=== PATIENT | female | born 1990 | race Two or more races ===

== ENCOUNTER 2016-11-07 10:07 | Emergency (ER) | payer OTHER ==
[~2016-11-07] VITALS: Ht 162.6 cm; Wt 54.6 kg
[2016-11-07] MEDS ORDERED: IV NORMAL SALINE 1,000ML 1,000 ML IV SCH (10:12)
[2016-11-07 10:46] LABS: HEMATOCRIT 40.8 % (36.0-47.0); HEMOGLOBIN 13.7 g/dL (12.0-15.5); MEAN CORPUSCULAR HEMOGLOBIN 30 pg (25-35); MEAN CORPUSCULAR HGB CONC 34 g/dL (31-37); MEAN CORPUSCULAR VOLUME 89 fL (79-100); PLATELET COUNT 219 x10^3/uL (140-400); RED CELL DISTRIBUTION WIDTH 12.6 % (11.5-14.5)
--- NOTE | 2016-11-07 10:58 | RAD ---
Portable chest, 11/07/2016: History: Syncope The heart size and pulmonary vascularity are normal. The lungs are clear. There is no evidence of pleural fluid. IMPRESSION: No acute cardiopulmonary abnormality is detected.
[2016-11-07 11:01] LABS: ALBUMIN 4.4 g/dL (3.4-5.0); CALCIUM 8.8 mg/dL (8.5-10.1); CREATININE 0.9 mg/dL (0.6-1.0); DIRECT BILIRUBIN 0.2 mg/dL (0.0-0.2); GFR 74.6; MAGNESIUM 2.4 mg/dL (1.8-2.4); POTASSIUM 3.9 mmol/L (3.5-5.1); TOTAL BILIRUBIN 0.6 mg/dL (0.2-1.0); TOTAL PROTEIN 7.9 g/dL (6.4-8.2)
--- NOTE | 2016-11-07 11:03 | RAD ---
CT of the head without contrast, 11/07/2016: History: Syncope, fall The ventricles are within normal limits in size. There is no shift of the midline structures. There is no evidence of acute intracranial hemorrhage or mass effect. IMPRESSION: No acute intracranial abnormality is detected. CT of the cervical spine without contrast, 11/07/2016: Noncontrast scans were obtained with multiplanar reconstructions produced. No fracture or dislocation is identified. The central spinal canal is well-preserved. The visualized paraspinal soft tissues are unremarkable. IMPRESSION: No acute cervical spine abnormality is detected. PQRS Compliance Statement: One or more of the following individualized dose reduction techniques were utilized for this examination: 1. Automated exposure control 2. Adjustment of the mA and/or kV according to patient size 3. Use of iterative reconstruction technique
[2016-11-07 11:13] LABS: PREG TEST PT QUAL NEGATIVE (NEG)
--- NOTE | 2016-11-07 11:14 | PHYS DOC ---
General Chief Complaint: ALTERED MENTAL STATUS Stated Complaint: ALTERED MENTAL STATUS Time Seen by MD: 10:11 Source: patient, family, EMS Exam Limitations: clinical condition Problems: History of Present Illness Initial Comments Patient is a 26-year-old female brought to the ED by EMS for mental status change. EMS reports they were called because patient was found down and unresponsive. On arrival they say patient was lying supine her eyes were closed but she would shake her head in response to verbal stimuli. Vitals were stable FSBS 81 so she was brought to the ED for further evaluation. Upon ED arrival patient was attempting to mumble answers. After patient was in the department 30-45 minutes she became verbal and states that on she was diagnosed with labyrinthitis at [facility] after presenting with congestion dizziness and headache. Shortly after that she began taking Sudafed daily and stop that only a few days ago. She has an appointment with ear nose and throat scheduled for November 19. 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 She says that she had 2 episodes of vomiting last night but woke up feeling well this morning. While working she remembers taking a yelitza aspirin, the next thing she recalls is "waking up lying on my back in my office." She says for quite some time she was unable to move or speak, but she does remember that she has an air freshener that sprays every 30 minutes. She says during this time it had sprayed 3 times. Eventually she was able to get some words out and verbally commanded her phone via [employer] to call 911. Patient's voice was too weak to be understood by the train dispatcher, she did call her significant other and was able to communicate enough that people came looking for her. Patient was not postictal at the point she was found, she had not lost continence of her bowels or bladder and had no evidence of trauma. Vital signs in the department, patient afebrile heart rate 97 bpm with 23 respirations blood pressure 128/81 100% on room air. Patient denies focal weakness in the department she does complain of global headache which has been bothering her the past several weeks it is not any worse it is described as throbbing/pressure primarily behind her eyes radiating to her ears. She gets intermittent dizziness and vertigo described as unsteadiness. No fever or chest pain shortness of breath or focal neurologic deficit. No PCP Timing/Duration: 1-3 hours Severity: severe Modifying Factors: improves with other Associated Symptoms: headaches, syncope, weakness, other Allergies: Coded Allergies: No Known Drug Allergies (Unverified , 11/07/16) Past Medical History Medical History: other (ADHD, depression, benign positional vertigo) Surgical History: noncontributory ( section) Social History Smoker: non-smoker Alcohol: occasionally Drugs: marijuana Review of Systems Constitutional: denies chills, denies fever, malaise EENTM: blurred vision, nose congestion, throat pain, denies throat swelling Respiratory: denies cough, denies shortness of breath, denies wheezing Cardiovascular: see HPI, denies chest pain, denies palpitations Gastrointestinal: see HPI, denies abdominal pain, denies diarrhea Genitourinary: denies dysuria, denies frequency, denies hematuria Musculoskeletal: denies back pain, denies joint swelling, denies neck pain Psychiatric/Neurological: see HPI Hematologic/Lymphatic: denies blood clots, denies easy bleeding, denies easy bruising Physical Exam General Appearance: WD/WN, no apparent distress (unresponsive on arrival) Eyes: bilateral eye normal inspection, bilateral eye PERRL, bilateral eye EOMI Ear, Nose, Throat: hearing grossly normal, normal ENT inspection, normal pharynx Neck: non-tender, supple Respiratory: chest non-tender, normal breath sounds, no respiratory distress Cardiovascular: normal peripheral pulses, regular rate, rhythm Gastrointestinal: non tender, soft Back: no CVA tenderness, no vertebral tenderness Extremities: normal range of motion, non-tender, normal inspection, no pedal edema 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 PHYSICIAN: LUCI GONSALEZ DO REASON: syncope/fall PROCEDURE: CT HEAD AND CERVICAL SPINE WO CT of the head without contrast, 11/07/2016: History: Syncope, fall The ventricles are within normal limits in size. There is no shift of the midline structures. There is no evidence of acute intracranial hemorrhage or mass effect. IMPRESSION: No acute intracranial abnormality is detected. CT of the cervical spine without contrast, 11/07/2016: Noncontrast scans were obtained with multiplanar reconstructions produced. No fracture or dislocation is identified. The central spinal canal is well-preserved. The visualized paraspinal soft tissues are unremarkable. IMPRESSION: No acute cervical spine abnormality is detected. PQRS Compliance Statement: One or more of the following individualized dose reduction techniques were utilized for this examination: 1. Automated exposure control 2. Adjustment of the mA and/or kV according to patient size 3. Use of iterative reconstruction technique DICTATED AND SIGNED BY: GOPAL CONNOR MD DATE: 11/07/16 1056 CC: GISSEL DAVIS; LUCI GONSALEZ DO ~ Lab and urine studies were reassuring, urine drug screen positive for amphetamine patient takes medications for ADD I discussed the patient with Dr. Barahona billing collections specialist neurology. He requested that the patient be admitted and no other orders as he would like to see the patient prior to ordering studies. I discussed this with Dr. Zelaya who accepts observation telemetry admission. Departure Disposition: ADMITTED INPATIENT Diagnosis: altered mental status, ADD, URI with BPV Condition: IMPROVED Additional Instructions: Telemetry opposite admission Dr. Go is accepting Dr. Barahona to be consulted LUCI GONSALEZ DO Nov 07, 2016 11:14
[2016-11-07 11:31] LABS: BACTERIA,URINE 0 /HPF (0-FEW); BILIRUBIN,URINE NEG (NEG); CLARITY,URINE HAZY; COLOR,URINE STRAW; GLUCOSE,URINE NEG (NEG); NITRITE,URINE NEG (NEG); RBC,URINE 0 /HPF (0-2); SQUAMOUS EPITHELIAL CELL,UR OCC /LPF; UROBILINOGEN,URINE 0.2 mg/dL (0.2 mg/dL); WBC,URINE 0 /HPF (0-4)
[2016-11-07 11:41] LABS: AMPHETAMINE/METHAMPHETAMINE POS (NEG); BARBITURATES NEG (NEG); BENZODIAZEPINES NEG (NEG); CANNABINOIDS NEG (NEG); COCAINE NEG (NEG); METHADONE NEG (NEG); OPIATES NEG (NEG); PHENCYCLIDINE NEG (NEG)
[2016-11-07 11:45] LABS: % BANDS 1 % (0-9); % EOS 2 % (0-5); % LYMPHS 32 % (24-48); % MONOS 3 % (0-10); % SEGS 62 % (35-66); PLT ESTIMATE ADEQUATE (ADEQUATE)
[2016-11-07] MEDS ORDERED: ONDANSETRON PF 4 MG/2 ML VIAL. IV PRN (13:15)
--- NOTE | 2016-11-07 13:31 | EKG ---
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
[2016-11-07] MEDS: ACETAMINOPHEN 325 MG TABLET PO PRN ×2 (13:38→18:42)
[2016-11-07] MEDS ORDERED: fentaNYL PF 100 MCG/2 ML VIAL IV ONE (15:30)
--- NOTE | 2016-11-07 15:42 | ACF ---
Admission Criteria Forms MENTAL STATUS CHANGE Clinical Indications for Inpatient Care (Place 'X' for any and all applicable criteria): Ongoing inpatient care may be needed for 1 or more of the following(1)(2)(3)(5)( 6): [X ]I. Suspected serious etiology (eg, medical disorder, AIR ANALYST event) of altered mental status [ ]II. Danger to self or others not manageable at lower level of care [ ]III. Grave disability (eg, inability to perform self care necessary at lower level of care) [ ]IV. Agitation or inappropriate behavior interfering with care for primary condition (eg, attempting to discontinue lines or drains prematurely, unable to cooperate with respiratory care) [ ]V. Delirium [A] [D][E] as described by 1 or more of the following(26): [ ]a) Delirium due to alcohol or sedative [F] withdrawal [ ]b) Delirium of uncertain etiology that has not responded to appropriate empiric treatment [ ]c) Delirium that prevents performance of a life-sustaining function (eg, feeding or hydrating oneself) [ ]. General contraindications and/or Inappropriate clinical situations for Observational Care in patients with Mental Status Change, when ANY ONE of the following is required: [ ]a) Prediction of prolongation of LOS based on ANY ONE of the following may be considered as a contraindication for observational care 2, 3, 4, 5, 6, 7, 8, 9, 10, 11 [ ]i) Age > 65 yrs. [ ]ii) Patient arriving by ambulance [ ]iii) Patient with high acuity [ ]iv) Patient requiring vital sign monitoring [ ]v) Patient on IV medication [ ]b) Systolic blood pressures greater than or equal to 180mmHg 3, 12 [ ]c) Patient with altered mental status including delirium and other alteration of consciousness, (3) [ ]d) Patient whose discharge disposition will be to a half-way home or rehabilitation home should not be managed in Emergency Department Observation Unit. CMS rule requires 3 days hospital stay before such placement.3,13 [ ]e) Patient with failure to thrive due to broad array of etiologies 3,16,17 [ ]f) Inability to ambulate 3,14 Extended stay beyond goal length of stay for the primary condition may be needed until ALL of the following are present(3)(5): [ ]a) Underlying medical etiology of mental status change is absent, or has been established and adequately treated [ ]b) Danger to self or others is absent or manageable at lower level of care. [ ]c) Behavior crisis management, including physical or chemical restraints, is not required or available at lower level of car [ ]d) Substance or alcohol withdrawal is absent or manageable at lower level of care. [ ]e) Behavioral symptoms (eg, agitation, somnolence, inappropriate behavior) are absent, or are manageable at lower level of care. The original [facility] content created by [facility] has been revised. The portions of the content which have been revised are identified through the use of italic text or in bold, and [facility] has neither reviewed nor approved the modified material. All other unmodified content is copyright [facility]. Please see references footnoted in the original [facility] edition 2016 Admission Criteria Met?: Yes YANNICK FARAH Nov 07, 2016 15:42
[2016-11-07 16:31] VITALS: BP 99/50
[2016-11-07] MEDS ORDERED: DEXT30CA6 PO (17:44)
[2016-11-07] MEDS ORDERED: DEXT5TAB27 PO (17:45)
[2016-11-07] MEDS ORDERED: BUPR150T8 PO (17:46)
[2016-11-07 19:52] VITALS: BP 109/73
[2016-11-07] MEDS ORDERED: MECLIZINE 12.5 MG TABLET. PO PRN (20:00)
[2016-11-07] MEDS ORDERED: methylPREDNISolone SOD SUCC PF 125 MG/2 ML VIAL. IV ONE (20:15)
[2016-11-07] MEDS: TOPIRAMATE 25 MG TABLET. PO SCH (20:25)
[2016-11-07 23:44] VITALS: BP 103/69
[2016-11-08] MEDS: ACETAMINOPHEN 325 MG TABLET PO PRN (03:05)
--- NOTE | 2016-11-08 04:20 | CONS ---
DATE OF CONSULTATION: 11/07/2016 NEUROLOGIC CONSULTATION REFERRING PHYSICIAN: KAVITHA THAKUR MD REASON FOR CONSULTATION: Headaches and severe vertigo. HISTORY OF PRESENT ILLNESS: This is a 26-year-old female who was admitted to Emergency Room after she presented with acute onset of dizziness described as spinning and associated with nausea and sometimes with vomiting and throbbing headaches with photophobia and phonophobia. According to the patient, she has been suffering from vertigo for approximately 6 months. The vertigo is usually aggravated by quick changes of her positions from sitting to standing or from lying to sitting or from sitting to standing, and she started having the symptoms upon arising in a.m. The symptoms have been worsened in the last few days. Today, the patient was at school. She felt dizzy and fullness behind the ears, then apparently she fell to the floor and she did not recall the event. The patient stated she was awake, but she could not move her right upper and lower extremities and she felt right facial drooping. The patient stayed on the floor for approximately 2 hours, then she was able to call 911. On EMS arrival, the patient was found unresponsive to verbal commands, but she was answering question by shaking her head. The patient never had a complete loss of consciousness, bowel or bladder incontinence or injuries secondary to a fall. At the scene, her blood sugar was 80s. On arrival to Emergency Room, the patient was awake and started talking and responding to verbal commands. Initial nonenhanced head CT scan is unremarkable. According to the patient, she was seen in the Emergency Room at [facility], and she was diagnosed with vestibulitis about 4 to 6 weeks ago. She took a Sudafed [id number] for 3 weeks because of fullness behind the ear. She quit taking the medications approximately 2 weeks prior to this admission. Currently, she complains of right-sided throbbing headaches and pain around the eyes. She denies dysarthria, dysphagia, chest pain, shortness of breath or palpitation. PAST MEDICAL HISTORY: Significant for attention deficit disorder, benign positional vertigo, depression, and anxiety. PAST SURGICAL HISTORY: Positive for x 1. SOCIAL HISTORY: The patient is . She has 3 children at the age of 7, 5 and 3. She drinks alcohol occasionally. She smokes marijuana. REVIEW OF SYSTEMS: A 10-point review of system was performed and consistent with generalized weakness, malaise, fullness behind the ears, and vertigo as described above, otherwise unremarkable. CURRENT MEDICATIONS: Adderall 30 mg p.o. daily, Wellbutrin SR 150 mg twice daily. ALLERGIES: No known drug allergies. PHYSICAL EXAMINATION: GENERAL: Well-developed, well-nourished white female, not in acute distress. She weighs 114 pounds. Height 64 inches. VITAL SIGNS: Blood pressure 109/76, respiratory rate 16, pulse is 82, temperature is 98, oxygen saturation 100% on room air. HEENT: Normocephalic, atraumatic, otherwise unremarkable. NECK: Supple. Negative for carotid bruit, lymphadenopathy, JVD or thyromegaly. LUNGS: Clear to A and P. CARDIOVASCULAR: Regular rate and rhythm, normal S1, S2. There is no S3, S4 or murmur. ABDOMEN: Soft. Bowel sounds positive. EXTREMITIES: Negative for cyanosis, clubbing or pitting edema. NEUROLOGICAL EXAM: Mental Status: The patient is alert and oriented x 3. The speech is fluent. There is no language dysfunction. Memory, judgment, and abstract thinkings are normal. The patient denies hallucination or delusion. CRANIAL NERVES: Visual pérez are full. The pupils are reactive to light and accommodation. The extraocular movements are intact. There is no nystagmus. There is no facial motor or sensory deficit. Hearing is intact bilaterally with hyperacusia. There is subjective diminished pinprick and light touch senses over the right face compared to the left side. The palate is elevated symmetrically. Sternocleidomastoid muscles are powerful bilaterally. The patient shrugs her shoulders symmetrically, protrudes her tongue in the midline without fasciculation or atrophy. MOTOR EXAMINATION: No focal muscle bulk was seen. The tone is normal. The strength is 5/5 throughout. Sensory examination revealed subjectively diminished pinprick and light touch senses over the right upper and lower extremity compared to those on the left side. Since deep tendon reflexes are symmetric and active without pathology responses. Gait, the stance is steady, but Romberg sign is positive. The patient has normal hrbgzv-md-hhwn and jvpw-sm-vugu. DIAGNOSTIC: Initial nonenhanced head CT scan revealed no abnormalities. Chest x-ray is negative for cardiopulmonary acute process. CT of the cervical spine revealed no acute abnormalities. LABORATORY DATA: CBC revealed white blood cells of 5000, hemoglobin 13.7, hematocrit 40.8, and platelet count 219,000. Chemistry revealed sodium of 140, potassium 3.9, chloride 105, CO2 27, BUN 9, creatinine 0.9, glucose 91, calcium 8.8. Liver enzymes are normal. Troponin level is less than 0.017. Urinalysis is negative and urine drug screen is positive for amphetamine. IMPRESSION: 1. Longstanding history of vertigo and possible paroxysmal benign positional vertigo versus vestibulitis. 2. Intermittent severe headache described as migraine, headaches with nausea and sometimes vomiting with photophobia and phonophobia. 3. History of depressions, adult attention deficit disorder, and anxiety. RECOMMENDATION: 1. We will start the patient on meclizine for vertigo at 25 mg t.i.d. p.r.n. 2. Solu-Medrol. 3. We will start the patient on Topamax at 25 mg twice daily, Tylenol for headaches for now, and brain MRI with contrast to rule out central nervous system pathology. M Ольга MARIE MD DR: MECHE/sohan JOB#: [id number] / [id number]
[2016-11-08 05:50] VITALS: BP 91/45
[2016-11-08 05:59] LABS: BASO % 0 % (0-3); EOS % 0 % (0-3); HEMATOCRIT 39.4 % (36.0-47.0); HEMOGLOBIN 12.9 g/dL (12.0-15.5); LYMPH # 0.5 x10^3/uL (1.0-4.8); LYMPH % 9 % (24-48); MEAN CORPUSCULAR HEMOGLOBIN 29 pg (25-35); MEAN CORPUSCULAR HGB CONC 33 g/dL (31-37); MEAN CORPUSCULAR VOLUME 89 fL (79-100); MONO # 0.2 x10^3/uL (0.0-1.1); MONO % 3 % (0-9); NEUT # 5.4 x10^3uL (1.8-7.7); NEUT % 88 % (31-73); PLATELET COUNT 191 x10^3/uL (140-400); RED BLOOD COUNT 4.44 x10^6/uL (3.50-5.40); RED CELL DISTRIBUTION WIDTH 12.8 % (11.5-14.5); WHITE BLOOD COUNT 6.2 x10^3/uL (4.0-11.0)
[2016-11-08 06:18] LABS: CALCIUM 8.9 mg/dL (8.5-10.1); CREATININE 0.7 mg/dL (0.6-1.0); GFR 99.6; POTASSIUM 4.4 mmol/L (3.5-5.1)
[2016-11-08] MEDS: TOPIRAMATE 25 MG TABLET. PO SCH (09:02)
[2016-11-08] MEDS ORDERED: methylPREDNISolone SOD SUCC PF 125 MG/2 ML VIAL. IV ONE (10:00)
[2016-11-08 10:58] VITALS: BP 124/65
--- NOTE | 2016-11-08 12:50 | HP ---
ADMIT DATE: 11/08/2016 HISTORY OF PRESENT ILLNESS: The patient is a 26-year-old female patient who came to the Emergency Room with acute onset of dizziness described as spinning associated with nausea and sometimes vomiting and throbbing headache with photophobia and phonophobia. She said that she has been suffering from vertigo for almost 6 months now. Her symptoms are aggravated by changes in her position from sitting to standing and from lying to sitting. Apparently, over the last 2 weeks, her symptom has been worsening. On the day of admission, she went to school. She apparently felt dizzy and she said that she cannot remember when she fell to the floor. She woke up and found herself on the floor and she managed to call the Emergency Room. The patient was found to be unresponsive in school. She was however answering question by shaking her head. She did not bite her tongue. She was not incontinent of bowel or bladder. Her blood sugar was within normal range when they saw her at the scene and initially on arrival to the Emergency Room she was nonverbal. Eventually, she woke up and started talking and responded to verbal stimuli. She was extensively investigated in the Emergency Room and had CT scan of the head and cervical spine, which showed that there are no acute intracranial abnormalities detected. Her cervical spine CT scan showed no acute cervical spine abnormality detected. She has also had a chest x-ray, which was normal. Lab work done, which were all unrevealing and was admitted to consult the neurology team and to investigate for further. PAST MEDICAL HISTORY: Her past medical history is significant for attention deficit disorder, benign positional vertigo, depression, and anxiety. PAST SURGICAL HISTORY: Significant for x 1. FAMILY HISTORY: Unremarkable. SOCIAL HISTORY: She is and has three children. She drinks alcohol occasionally. She does not smoke marijuana. REVIEW OF SYSTEMS: As per history of present illness. MEDICATIONS: She is currently on following medication Wellbutrin SR 150 mg twice a day. She is on Adderall XR 30 mg once a day and Adderall 5 mg daily. PHYSICAL EXAMINATION: GENERAL: On arrival to the Emergency Room, she looked well and was clearly in no apparent respiratory distress. No pallor, jaundice, cyanosis, or thyromegaly. No jugular venous distention. No limb edema. VITAL SIGNS: Her heart rate was 87, blood pressure 118/83, temperature was 97.3, respiratory rate was 18, and oxygen saturation was 98% room air. HEENT: Showed normocephalic and atraumatic. NECK: Supple. HEART: Showed normal first and second heart sounds with no gallop, rub, or murmur. CHEST: Clear to auscultation. No crepitation or rhonchi. ABDOMEN: Distended, soft, and nontender. No guarding or rigidity. No organomegaly. Hernial orifices are intact. Bowel sounds normal. NEUROLOGIC: She was alert and oriented x3. All her cranial nerves are intact. EXTREMITIES: She moves her extremities without difficulty with no motor or sensory deficits. There is no evidence of cerebellar dysfunction. LABORATORY DATA: Her lab work on admission showed a white cell count 5000, hemoglobin 13.7, hematocrit 40.8, MCV 89, and platelet count 119,000. Her chemistry showed a serum sodium 140, potassium 3.9, chloride 105, bicarbonate 27, anion gap of 8, BUN 9, creatinine 0.9, and estimated GFR was 74.6 mL per minute. Her glucose was 91, calcium was 8.8, and magnesium was 2.4. Total bilirubin, AST, ALT, and alkaline phosphatase were normal. Her total protein was 7.9 and albumin was 4.4. Serum lipase was 97 and serum test was negative. Her prothrombin time was 10.6, INR 1, aPTT was 28, and D-dimer was 0.19. Her urinalysis was essentially unremarkable and toxic screen was positive for amphetamine and methamphetamine as she is already on Adderall. DIAGNOSTIC DATA: Her chest x-ray was basically unremarkable. The heart size and pulmonary vascularity were normal. The lungs are clear. There is no evidence of pleural fluid. Her CT scan of the head showed that the ventricles are within normal limits in size. There is no shift to the midline structure. There is no evidence of acute intracranial hemorrhage or mass effect. Cervical spine CT scan showed no acute cervical spine abnormalities detected. ASSESSMENT AND PLAN: She was admitted and continue with her medication. Consult Dr. Barahona to investigate her further. KAVITHA THAKUR MD DR: ROMY/sohan JOB#: [id number] / [id number]
[2016-11-08] MEDS ORDERED: fentaNYL PF 100 MCG/2 ML VIAL IV ONE (14:15)
[2016-11-08 15:00] VITALS: BP 104/67
--- NOTE | 2016-11-09 02:12 | PN ---
DATE: 11/08/2016 REFERRING PHYSICIAN: Susie Zelaya M.D. SUBJECTIVE: The patient stated her headache has been better and her dizziness has greatly improved. She continues to have mild vertigo upon changing her body positions. The patient stated on occasions she will have night sweats with some jerking or tremor of the arms followed by some confusion. OBJECTIVE: GENERAL: Well-developed, well-nourished white female, not in acute distress. VITAL SIGNS: Blood pressure 91/45, respiratory rate is 16, pulse is 86, temperature is 97.8 and oxygen saturation is 99% on room air. HEENT: Normocephalic and atraumatic, otherwise unremarkable. NECK: Supple. Negative for carotid bruits, lymphadenopathy or thyromegaly. LUNGS: Clear to A and P. CARDIOVASCULAR: Regular rate and rhythm. Normal S1 and S2. There is no S3, S4 or murmur. ABDOMEN: Soft. Bowel sounds positive. EXTREMITIES: Negative for cyanosis, clubbing or pitting edema. NEUROLOGICAL: Mental status: Intact. Cranial nerves are normal. There is no nystagmus. Motor examination: No focal muscle bulk is seen. The tone is normal. The strength is 5/5 throughout. Sensory examination reveals normal pinprick, light touch, vibratory and position senses. Deep tendon reflexes are symmetric and active without pathology responses. Gait and coordination normal. LABORATORY DATA: CBC revealed white blood cells of 6.2 thousand, hemoglobin 12.9, hematocrit 39.4 and platelet count 191,000. Chemistry revealed sodium of 140, potassium 4.4, chloride 107, CO2 of 25, BUN 9, creatinine 0.7, glucose 122 and calcium 8.9. Coagulations are normal. IMPRESSION: 1. History of vertigo, paroxysmal benign positional vertigo, with history of vestibulitis. 2. Intermittent bitemporal headaches with component of migraine and sometimes tension headaches. 3. Multiple psychiatric problems including anxiety and depressions, adult attention deficit disorder. RECOMMENDATIONS: 1. Await for brain MRI to rule out intracranial structural etiology. 2. We will continue with magnesium, Solu-Medrol and Topamax. 3. Continue her current home medications. M Ольга MARIE MD DR: MECHE/[facility] JOB#: [id number] / [id number]
--- NOTE | 2016-11-09 02:48 | PN ---
DATE: 11/08/2016 SUBJECTIVE: The patient was admitted yesterday with headache and vertigo. She is known to have depression and adult attention deficit disorder and anxiety. She was seen by Dr. Barahona and was started on methylprednisolone as well as meclizine and topiramate. When I saw her this morning, she stated that she continue to have the feeling of dizziness, but the headache is much less. She is actually scheduled for MRI of the brain at [facility]. PHYSICAL EXAMINATION: GENERAL: When I saw her this morning, she was sitting in the chair, in no apparent respiratory distress. There was no pallor, jaundice, cyanosis, or thyromegaly. No jugular venous distention. No limb edema. VITAL SIGNS: Her heart rate was 67, blood pressure 124/65, temperature was 97.5, respiratory rate was 18 and oxygen saturation was 98%. HEAD, EYES, EARS, NOSE AND THROAT: Showed normocephalic, atraumatic. NECK: Supple. HEART: Showed normal first and second heart sounds with no gallop, rub or murmur. CHEST: Clear to auscultation. No crepitation or rhonchi. ABDOMEN: Distended, soft, nontender. No guarding or rigidity. No organomegaly. All hernial orifices are intact. Bowel sounds normal. NEUROLOGIC: She was awake, alert, responding appropriately. All her cranial nerves are intact. She moves extremities without difficulty. She ambulates without assistance or assistive devices. Her intake was 1713, no output was recorded. LABORATORY DATA: Her lab work this morning showed that her white cell count was 6200, hemoglobin 12.9, hematocrit 39, MCV 89 and platelet count of 191,000 with normal manual differential. Her chemistry showed a serum sodium 140, potassium 4.4, chloride 107, bicarbonate 25, anion gap of 8, BUN 9, creatinine 0.7, estimated GFR was 99 mL per minute. Her glucose was 22, calcium was 8.9. Did have 3 sets of cardiac enzymes that were negative, less than 0.017. ASSESSMENT: 1. Longstanding history of vertigo with possible paroxysmal benign positional vertigo. 2. Intermittent severe headache associated with nausea, vomiting, photophobia and occasionally phonophobia. 3. Depression and anxiety. 4. Attention deficit disorder. PLAN: To continue with current plan of management namely her meclizine, topiramate and antiemetic; await the result for the brain MRI that was scheduled for this morning. KAVITHA THAKUR MD DR: ROMY/sohan JOB#: [id number] / [id number]
== END 2016-11-08 17:53 | disposition left against medical advice (07) ==
LOC: ER 10:07 → 1 SOUTH 13:07
PROVIDERS: ADMIT Internal Medicine; ATTEND Internal Medicine
DX: R42 Dizziness and giddiness (principal); G43.909 Migraine, unspecified, not intractable, without status migrainosus; R11.2 Nausea with vomiting, unspecified; H53.149 Visual discomfort, unspecified; F12.90 Cannabis use, unspecified, uncomplicated; F17.200 Nicotine dependence, unspecified, uncomplicated; F32.9 Major depressive disorder, single episode, unspecified; F41.9 Anxiety disorder, unspecified; F90.9 Attention-deficit hyperactivity disorder, unspecified type; F98.8 Other specified behavioral and emotional disorders with onset usually occurring in childhood and adolescence; W18.30XA Fall on same level, unspecified, initial encounter
CPT/HCPCS: 36415; 51702; 70450; 71010; 72125; 80048; 80076; 81001; 81025; 82550; 83605; 83690; 83735; 83880; 84484; 84703; 85007; 85027; 85379; 85610; 85730; 87040; 93005; 96361; 96374; 96375; 96376; 99285; G0378; G0480; G0481; J2405; J2930; J3010; J8597; G0379; J7030